=== PATIENT | female | born 1980 | race Caucasian/White ===

== ENCOUNTER 2018-03-19 14:17 | Emergency (ER) | payer MEDICAID ==
[~2018-03-19] VITALS: Ht 175.3 cm; Wt 65.9 kg
[2018-03-19] MEDS ORDERED: ALBU6.7H IH (14:30)
[2018-03-19] MEDS ORDERED: TRAM50TA4 PO (14:30)
[2018-03-19] MEDS ORDERED: FLUT16H NASAL (14:30)
[2018-03-19] MEDS ORDERED: GABA300S PO (14:30)
[2018-03-19 15:51] VITALS: BP 120/76
== END 2018-03-19 15:53 | disposition left against medical advice (07) ==
LOC: EMS 14:18
DX: N93.8 Other specified abnormal uterine and vaginal bleeding (principal); I10 Essential (primary) hypertension; Z79.899 Other long term (current) drug therapy; Z98.890 Other specified postprocedural states
CPT/HCPCS: 99283

== ENCOUNTER 2019-03-27 03:07 | Emergency (ER) | payer MEDICAID, OTHER ==
[~2019-03-27] VITALS: Ht 177.8 cm; Wt 70.5 kg
[~2019-03-27 03:07] MED LIST: ALBU6.7H9 IH; FLUT16H NASAL; GABA300S PO; TRAM50TA4 PO
[2019-03-27] MEDS ORDERED: CefTRIAXone SODIUM 1 GM/VIAL IM ONE (03:30)
[2019-03-27] MEDS ORDERED: FLUCONAZOLE 150 MG TABLET PO ONE (03:30)
[2019-03-27] MEDS ORDERED: MetroNIDAZOLE 500 MG TABLET PO ONE (03:30)
[2019-03-27] MEDS ORDERED: AZITHROMYCIN 250 MG TABLET PO ONE (03:30)
[2019-03-27] MEDS ORDERED: LIDOCAINE/PF 1% 2 ML VIAL IM ONE (03:45)
[2019-03-27 04:01] LABS: APPEARANCE,URINE CLEAR (CLEAR); BILIRUBIN,URINE NEGATIVE (NEGATIVE); GLUCOSE, URINE (UA) NEGATIVE (NEGATIVE); KETONES,URINE NEGATIVE (NEGATIVE); LEUKOCYTE ESTERASE ,URINE TRACE (NEGATIVE); NITRATE,URINE NEGATIVE (NEGATIVE); OCCULT BLOOD,URINE NEGATIVE (NEGATIVE); PH,URINE 5.5 (5.0-8.0); PROTEIN,URINE NEGATIVE (NEGATIVE); UROBILINOGEN,URINE 0.2 mg/dL (<=1.0)
[2019-03-27 04:08] LABS: BACTERIA,URINE Few /HPF (None Seen); RBC,URINE 0-2 /HPF (0-2); WBC,URINE 0-2 /HPF (0-5)
[2019-03-27 04:09] LABS: SQUAMOUS EPITHELIAL CELL,UR Few /LPF (None Seen)
[2019-03-27 04:27] VITALS: BP 141/78
== END 2019-03-27 04:31 | disposition home or self-care (01) ==
LOC: EMS 03:07
DX: R30.0 Dysuria (principal); N89.8 Other specified noninflammatory disorders of vagina; I10 Essential (primary) hypertension; F12.90 Cannabis use, unspecified, uncomplicated; F11.90 Opioid use, unspecified, uncomplicated; F17.210 Nicotine dependence, cigarettes, uncomplicated; Z88.0 Allergy status to penicillin; Z88.8 Allergy status to other drugs, medicaments and biological substances; Z79.899 Other long term (current) drug therapy
CPT/HCPCS: 81001; 96372; 99284; 99406; J0696; J3490

== ENCOUNTER 2019-10-04 15:53 | Inpatient (IN) | payer OTHER ==
[~2019-10-04] VITALS: Ht 170.2 cm; Wt 72.0 kg
[2019-10-04] MEDS ORDERED: ACET-66 PO (15:59)
[2019-10-04] MEDS ORDERED: [UNRECOGNIZED DRUG - OTHER] PO (15:59)
[2019-10-04] MEDS ORDERED: SODIUM CHLORIDE 0.9% 2,050 ML IV ONE (16:30)
[2019-10-04] MEDS ORDERED: ACETAMINOPHEN 500 MG TABLET PO ONE (16:45)
[2019-10-04 17:06] LABS: BASOPHILS % (AUTO) 0.2 % (0.0-2.0); EOSINOPHILS % (AUTO) 0 % (1.0-6.0); HEMATOCRIT 32.7 % (36-46); HEMOGLOBIN 9.5 g/dL (12.0-16.0); LYMPHOCYTES % (AUTO) 7.3 % (22.0-44.0); MEAN CORPUSCULAR HEMOGLOBIN 17.6 pg (26.0-34.0); MEAN CORPUSCULAR HGB CONC 28.9 G/dL (31.0-37.0); MEAN CORPUSCULAR VOLUME 61 fL (80-100); MONOCYTES # (AUTO) 1.8 K/uL (0.1-1.0); MONOCYTES % (AUTO) 12.8 % (2.0-9.0); NEUTROPHILS # (AUTO) 11.3 K/uL (1.8-7.7); NEUTROPHILS % (AUTO) 79.7 % (40.0-70.0); PLATELET COUNT (AUTO) 243 K/uL (150-450); RED BLOOD CELL COUNT(AUTO) 5.38 MIL/uL (4.00-5.20); RED CELL DISTRIBUTION WIDTH 19.9 % (11.5-14.5)
[2019-10-04 17:20] LABS: INR 1.1 (0.9-1.1)
[2019-10-04 17:21] LABS: LACTIC ACID 1.3 mmol/L (0.4-2.0)
[2019-10-04 17:25] LABS: CALCIUM, TOTAL 8.5 mg/dL (8.8-10.5); CREATININE 1.25 mg/dL (0.60-1.30); POTASSIUM 3.2 mmol/L (3.5-5.1)
[2019-10-04 17:33] LABS: INFLUENZA TYPE A NEGATIVE FOR TYPE A (NEGATIVE); INFLUENZA TYPE B NEGATIVE FOR TYPE B (NEGATIVE)
[2019-10-04 17:36] LABS: PLATELET MORPHOLOGY COMMENT GIANT PLTS PRESENT
[2019-10-04 17:51] LABS: ALBUMIN 3.2 g/dL (3.4-5.0); BILIRUBIN,TOTAL 0.4 mg/dL (0.1-1.0)
[2019-10-04 17:59] LABS: C-REACTIVE PROTEIN QUANT 15.56 mg/dL (0.00-0.30)
[2019-10-04] MEDS ORDERED: POTASSIUM CHLORIDE 20 MEQ ER TABLET PO ONE (18:15)
[2019-10-04] MEDS ORDERED: LEVOFLOXACIN 750 MG/D5% WATER 150 ML IV ONE (19:30)
[2019-10-04] MEDS ORDERED: POTASSIUM CHL 10 MEQ/WATER 50 ML IV PRN (21:45)
[2019-10-04] MEDS ORDERED: MAGNESIUM SULFATE 4 GM/WATER 100 ML IV PRN (21:45)
[2019-10-04] MEDS ORDERED: ONDANSETRON HCL 4 MG/2 ML VIAL IVP PRN (21:45)
[2019-10-04] MEDS ORDERED: ZOLPIDEM TARTRATE 5 MG TABLET PO PRN (21:45)
[2019-10-04] MEDS ORDERED: POTASSIUM CHLORIDE 20 MEQ ER TABLET PO PRN (21:45)
[2019-10-04] MEDS ORDERED: MAGNESIUM SULFATE 2 GM/WATER 50 ML IV PRN (21:45)
[2019-10-04] MEDS ORDERED: MAGNESIUM OXIDE 400 MG TABLET PO PRN (21:45)
[2019-10-04] MEDS ORDERED: SODIUM CHLORIDE 0.9% 1,000 ML IV ONE (21:45)
[2019-10-04] MEDS ORDERED: ALBUMIN HUMAN 25%-25GM/100ML 100 ML IV PRN (21:45)
[2019-10-04] MEDS ORDERED: 0.9% SODIUM CHLORIDE 10 ML SYRINGE IVP PRN (21:45)
[2019-10-04] MEDS: HEPARIN SODIUM,PORCINE 5,000 UNITS/ML VIAL SQ SCH (23:32)
[2019-10-04 23:46] LABS: APPEARANCE,URINE CLOUDY (CLEAR); BILIRUBIN,URINE NEGATIVE (NEGATIVE); GLUCOSE, URINE (UA) NEGATIVE (NEGATIVE); KETONES,URINE NEGATIVE (NEGATIVE); LEUKOCYTE ESTERASE ,URINE LARGE (NEGATIVE); NITRATE,URINE POSITIVE (NEGATIVE); OCCULT BLOOD,URINE SMALL (NEGATIVE); PROTEIN,URINE POS 1+ (NEGATIVE)
[2019-10-04 23:52] LABS: BACTERIA,URINE Moderate /HPF (None Seen); SQUAMOUS EPITHELIAL CELL,UR Rare /LPF (None Seen); WBC,URINE >100 /HPF (0-5)
[2019-10-05 06:19] LABS: BASOPHILS % (AUTO) 0.2 % (0.0-2.0); EOSINOPHILS % (AUTO) 0 % (1.0-6.0); HEMATOCRIT 27.1 % (36-46); HEMOGLOBIN 7.9 g/dL (12.0-16.0); MEAN CORPUSCULAR HEMOGLOBIN 17.6 pg (26.0-34.0); MEAN CORPUSCULAR VOLUME 61 fL (80-100); MONOCYTES # (AUTO) 1.6 K/uL (0.1-1.0); MONOCYTES % (AUTO) 12.5 % (2.0-9.0); NEUTROPHILS % (AUTO) 79.3 % (40.0-70.0); PLATELET COUNT (AUTO) 200 K/uL (150-450); RED BLOOD CELL COUNT(AUTO) 4.48 MIL/uL (4.00-5.20); RED CELL DISTRIBUTION WIDTH 19.1 % (11.5-14.5)
[2019-10-05 06:41] LABS: ALBUMIN 2.5 g/dL (3.4-5.0); ANION GAP 7 mmol/L (8-16); CALCIUM, TOTAL 7.7 mg/dL (8.8-10.5); CARBON DIOXIDE 27 mmol/L (22-29); CHLORIDE 100 mmol/L (98-107); CREATININE 0.78 mg/dL (0.60-1.30); GLOMERULAR FILTR. RATE CALC > 60 mL/min (>60); GLUCOSE,RANDOM 103 mg/dL (70-110); POTASSIUM 3.8 mmol/L (3.5-5.1); SODIUM SERUM 134 mmol/L (136-145); UREA NITROGEN, BLOOD 10 mg/dL (7-18)
[2019-10-05 07:25] LABS: PLATELET MORPHOLOGY COMMENT LARGE PLTS PRESENT
[2019-10-05] MEDS: PANTOPRAZOLE SODIUM 40 MG DR TABLET PO SCH (08:37)
[2019-10-05] MEDS: HEPARIN SODIUM,PORCINE 5,000 UNITS/ML VIAL SQ SCH ×2 (08:38→15:47)
[2019-10-05] MEDS: SODIUM CHLORIDE 0.9% 1,000 ML IV SCH ×3 (11:15→15:00)
[2019-10-05] MEDS ORDERED: GABA-531 PO (11:25)
[2019-10-05] MEDS: CefTRIAXone 1 GM/DEXTROSE 50 ML IV SCH ×2 (12:00→12:49)
[2019-10-05] MEDS: MetroNIDAZOLE 500 MG/NACL 100 ML IV SCH ×2 (13:17→20:27)
[2019-10-05] MEDS: ACETAMINOPHEN 325 MG TABLET PO PRN (13:53)
[2019-10-05 14:44] VITALS: BP 120/60
[2019-10-05] MEDS ORDERED: SODIUM CHLORIDE 0.9% 250 ML IV ONE (15:13)
[2019-10-05 17:07] VITALS: BP 120/60
[2019-10-05] MEDS ORDERED: INFLUENZA VIRUS VACCINE QVS 2019-20 (3YR+)/PF 60 MCG/0.5 ML SYRINGE IM ONE (19:15)
[2019-10-05 19:54] VITALS: BP 113/66
[2019-10-05 20:17] LABS: LACTATE DEHYDROGENASE 391 U/L (81-234)
[2019-10-06 00:27] VITALS: BP 112/55
[2019-10-06] MEDS: HEPARIN SODIUM,PORCINE 5,000 UNITS/ML VIAL SQ SCH ×2 (00:52→08:00)
[2019-10-06] MEDS: ACETAMINOPHEN 325 MG TABLET PO PRN (00:53)
[2019-10-06] MEDS: MetroNIDAZOLE 500 MG/NACL 100 ML IV SCH (05:41)
[2019-10-06 05:42] VITALS: BP 98/61
[2019-10-06 07:27] LABS: BASOPHILS % (AUTO) 0.2 % (0.0-2.0); EOSINOPHILS % (AUTO) 0.2 % (1.0-6.0); HEMATOCRIT 26.3 % (36-46); HEMOGLOBIN 7.8 g/dL (12.0-16.0); LYMPHOCYTES # (AUTO) 1.3 K/uL (1.0-4.8); LYMPHOCYTES % (AUTO) 17.2 % (22.0-44.0); MEAN CORPUSCULAR HEMOGLOBIN 17.9 pg (26.0-34.0); MEAN CORPUSCULAR HGB CONC 29.6 G/dL (31.0-37.0); MEAN CORPUSCULAR VOLUME 61 fL (80-100); MONOCYTES # (AUTO) 1.1 K/uL (0.1-1.0); MONOCYTES % (AUTO) 14.3 % (2.0-9.0); NEUTROPHILS # (AUTO) 5.1 K/uL (1.8-7.7); NEUTROPHILS % (AUTO) 68.1 % (40.0-70.0); PLATELET COUNT (AUTO) 192 K/uL (150-450); RED BLOOD CELL COUNT(AUTO) 4.35 MIL/uL (4.00-5.20); RED CELL DISTRIBUTION WIDTH 19.1 % (11.5-14.5)
[2019-10-06 08:10] LABS: IRON, SERUM 7 mcg/dL (50-175); TOTAL IRON BINDING CAPACITY 338 mcg/dL (250-450)
[2019-10-06 08:23] LABS: ALANINE AMINOTRANSFERASE 15 U/L (12-78); ALBUMIN 2.4 g/dL (3.4-5.0); ALKALINE PHOSPHATASE 56 U/L (46-116); ANION GAP 10 mmol/L (8-16); ASPARTATE AMINOTRANSFERASE 12 U/L (15-37); BILIRUBIN,TOTAL 0.2 mg/dL (0.1-1.0); CALCIUM, TOTAL 7.8 mg/dL (8.8-10.5); CARBON DIOXIDE 25 mmol/L (22-29); CHLORIDE 101 mmol/L (98-107); FERRITIN 62 ng/mL (8-252); GLOMERULAR FILTR. RATE CALC > 60 mL/min (>60); GLUCOSE,RANDOM 84 mg/dL (70-110); POTASSIUM 3.6 mmol/L (3.5-5.1); SODIUM SERUM 136 mmol/L (136-145); TOTAL PROTEIN, SERUM 6.3 g/dL (6.4-8.2); UREA NITROGEN, BLOOD 11 mg/dL (7-18)
[2019-10-06 08:29] VITALS: BP 102/62
[2019-10-06] MEDS: PANTOPRAZOLE SODIUM 40 MG DR TABLET PO SCH (08:53)
[2019-10-06] MEDS: SODIUM CHLORIDE 0.9% 1,000 ML IV SCH (09:05)
[2019-10-06] MEDS ORDERED: TraMADol HCL 50 MG TABLET PO PRN (10:30)
== END 2019-10-06 10:45 | disposition left against medical advice (07) | DRG 720 ==
LOC: EMS 15:55 → 5N 10-05 12:42
PROVIDERS: ADMIT Internal Medicine; ATTEND Internal Medicine
DX: A41.9 Sepsis, unspecified organism (principal); U07.1 COVID-19; R65.21 Severe sepsis with septic shock; K81.0 Acute cholecystitis; N10 Acute pyelonephritis; F12.90 Cannabis use, unspecified, uncomplicated; F11.90 Opioid use, unspecified, uncomplicated; D50.9 Iron deficiency anemia, unspecified; Z53.29 Procedure and treatment not carried out because of patient's decision for other reasons; Z88.0 Allergy status to penicillin; F17.210 Nicotine dependence, cigarettes, uncomplicated; I10 Essential (primary) hypertension; Z59.0 Homelessness; J12.89 Other viral pneumonia
CPT/HCPCS: 71250; 76700; 82728; 83540; 83550; 83605; 83615; 83735; 84145; 84466; 85651; 86140; 87040; 87086; 87635; 87804; 93005; J0696; J1644; J1956; J3475; J3480; J3490; J7030; J7050

== ENCOUNTER 2020-01-01 08:15 | Emergency (ER) | payer OTHER ==
[~2020-01-01] VITALS: Ht 175.3 cm; Wt 72.7 kg
[~2020-01-01 08:15] MED LIST changes: +ACET-66 PO; +GABA-1181 PO; -GABA300S PO; +[UNRECOGNIZED DRUG - OTHER] PO
[2020-01-01] MEDS ORDERED: SODIUM CHLORIDE 0.9% 2,200 ML IV ONE (08:34)
[2020-01-01] MEDS ORDERED: ACETAMINOPHEN 500 MG TABLET PO ONE (08:45)
[2020-01-01] MEDS ORDERED: 0.9% SODIUM CHLORIDE 10 ML SYRINGE IVP PRN (08:45)
[2020-01-01 09:17] LABS: BASOPHILS % (AUTO) 0.7 % (0.0-2.0); EOSINOPHILS % (AUTO) 0.3 % (1.0-6.0); HEMATOCRIT 30.5 % (36-46); HEMOGLOBIN 9.2 g/dL (12.0-16.0); LYMPHOCYTES # (AUTO) 1.1 K/uL (1.0-4.8); LYMPHOCYTES % (AUTO) 12.7 % (22.0-44.0); MEAN CORPUSCULAR HEMOGLOBIN 18.4 pg (26.0-34.0); MEAN CORPUSCULAR HGB CONC 30.1 G/dL (31.0-37.0); MEAN CORPUSCULAR VOLUME 61 fL (80-100); MONOCYTES % (AUTO) 12.2 % (2.0-9.0); NEUTROPHILS # (AUTO) 6.2 K/uL (1.8-7.7); NEUTROPHILS % (AUTO) 74.1 % (40.0-70.0); PLATELET COUNT (AUTO) 341 K/uL (150-450); RED BLOOD CELL COUNT(AUTO) 4.99 MIL/uL (4.00-5.20); RED CELL DISTRIBUTION WIDTH 18.9 % (11.5-14.5)
[2020-01-01 09:29] LABS: ANION GAP 4 mmol/L (8-16); CALCIUM, TOTAL 8.3 mg/dL (8.8-10.5); CARBON DIOXIDE 30 mmol/L (22-29); CHLORIDE 101 mmol/L (98-107); CREATININE 0.78 mg/dL (0.60-1.30); GLOMERULAR FILTR. RATE CALC > 60 mL/min (>60); GLUCOSE,RANDOM 109 mg/dL (70-110); POTASSIUM 3.8 mmol/L (3.5-5.1); SODIUM SERUM 135 mmol/L (136-145); UREA NITROGEN, BLOOD 10 mg/dL (7-18)
[2020-01-01 09:33] LABS: PROTHROMBIN TIME 10.5 SEC (9.4-11.6)
[2020-01-01 09:37] LABS: LACTIC ACID 1.1 mmol/L (0.4-2.0); PLATELET MORPHOLOGY COMMENT GIANT PLTS PRESENT
[2020-01-01 09:43] LABS: ALANINE AMINOTRANSFERASE 19 U/L (12-78); ALBUMIN 3.3 g/dL (3.4-5.0); ALKALINE PHOSPHATASE 74 U/L (46-116); ASPARTATE AMINOTRANSFERASE 13 U/L (15-37); BILIRUBIN,TOTAL 0.4 mg/dL (0.1-1.0); CREATINE KINASE, TOTAL ONLY 72 U/L (26-192); HCG,QUANTITATIVE < 1 mIU/mL (0-6); TOTAL PROTEIN, SERUM 8.3 g/dL (6.4-8.2)
[2020-01-01 10:07] LABS: INFLUENZA TYPE A NEGATIVE FOR TYPE A (NEGATIVE); INFLUENZA TYPE B NEGATIVE FOR TYPE B (NEGATIVE)
[2020-01-01 10:10] LABS: B-TYPE NATRIURETIC PEPTIDE 9 pg/mL (0-100)
[2020-01-01 12:23] VITALS: BP 120/72
== END 2020-01-01 12:25 | disposition home or self-care (01) ==
LOC: EMS 08:20
DX: B34.9 Viral infection, unspecified (principal); R50.9 Fever, unspecified; M79.10 Myalgia, unspecified site; F17.210 Nicotine dependence, cigarettes, uncomplicated; I10 Essential (primary) hypertension; F12.90 Cannabis use, unspecified, uncomplicated; F11.90 Opioid use, unspecified, uncomplicated; Z20.828 Contact with and (suspected) exposure to other viral communicable diseases; Z88.6 Allergy status to analgesic agent; Z88.0 Allergy status to penicillin
CPT/HCPCS: 36415; 71045; 80053; 82550; 83605; 83880; 84145; 84484; 84702; 85025; 85610; 87040; 87804; 93005; 99285; 99406; J7030; U0003

== ENCOUNTER 2020-09-23 04:40 | Emergency (ER) | payer OTHER ==
[~2020-09-23] VITALS: Ht 177.8 cm; Wt 77.7 kg
[~2020-09-23 04:40] MED LIST changes: +ACET-3385 PO; -ACET-66 PO
[2020-09-23] MEDS ORDERED: MetroNIDAZOLE 250 MG TABLET PO ONE (05:15)
[2020-09-23] MEDS ORDERED: DOXYCYCLINE HYCLATE 100 MG TABLET PO ONE (05:15)
[2020-09-23] MEDS ORDERED: ACETAMINOPHEN 500 MG TABLET PO ONE (05:15)
[2020-09-23 05:29] VITALS: BP 139/78
== END 2020-09-23 05:59 | disposition home or self-care (01) ==
LOC: EMS 04:41
DX: N89.8 Other specified noninflammatory disorders of vagina (principal); I10 Essential (primary) hypertension; F17.210 Nicotine dependence, cigarettes, uncomplicated; F12.90 Cannabis use, unspecified, uncomplicated; F11.90 Opioid use, unspecified, uncomplicated; Z88.6 Allergy status to analgesic agent; Z88.0 Allergy status to penicillin
CPT/HCPCS: 99284; Z7502; Z7610

== ENCOUNTER 2021-02-05 22:01 | Emergency (ER) | payer OTHER ==
[~2021-02-05] VITALS: Ht 175.3 cm; Wt 77.7 kg
[2021-02-05 23:30] LABS: BASOPHILS % (AUTO) 0.4 % (0.0-2.0); EOSINOPHILS % (AUTO) 15.1 % (1.0-6.0); HEMATOCRIT 25.2 % (36-46); HEMOGLOBIN 7.2 g/dL (12.0-16.0); LYMPHOCYTES # (AUTO) 2.5 K/uL (1.0-4.8); LYMPHOCYTES % (AUTO) 38.7 % (22.0-44.0); MEAN CORPUSCULAR HEMOGLOBIN 16.4 pg (26.0-34.0); MEAN CORPUSCULAR HGB CONC 28.6 G/dL (31.0-37.0); MEAN CORPUSCULAR VOLUME 57 fL (80-100); MONOCYTES # (AUTO) 0.9 K/uL (0.1-1.0); MONOCYTES % (AUTO) 13.2 % (2.0-9.0); NEUTROPHILS # (AUTO) 2.1 K/uL (1.8-7.7); NEUTROPHILS % (AUTO) 32.6 % (40.0-70.0); PLATELET COUNT (AUTO) 367 K/uL (150-450); RED BLOOD CELL COUNT(AUTO) 4.39 MIL/uL (4.00-5.20)
[2021-02-05 23:43] LABS: PROTHROMBIN TIME 10.6 SEC (9.4-11.6)
[2021-02-05 23:49] LABS: ANION GAP 8 mmol/L (8-16); CALCIUM, TOTAL 8.1 mg/dL (8.8-10.5); CARBON DIOXIDE 27 mmol/L (22-29); CHLORIDE 104 mmol/L (98-107); CREATININE 0.78 mg/dL (0.60-1.30); GLOMERULAR FILTR. RATE CALC > 60 mL/min (>60); GLUCOSE,RANDOM 95 mg/dL (70-110); POTASSIUM 3.5 mmol/L (3.5-5.1); SODIUM SERUM 139 mmol/L (136-145); UREA NITROGEN, BLOOD 15 mg/dL (7-18)
[2021-02-05 23:54] LABS: ALANINE AMINOTRANSFERASE 19 U/L (12-78); ALBUMIN 3.4 g/dL (3.4-5.0); ALKALINE PHOSPHATASE 71 U/L (46-116); ASPARTATE AMINOTRANSFERASE 10 U/L (15-37); BILIRUBIN,TOTAL 0.2 mg/dL (0.1-1.0); HCG,QUANTITATIVE < 1 mIU/mL (0-6); TOTAL PROTEIN, SERUM 7.6 g/dL (6.4-8.2)
[2021-02-06 00:17] VITALS: BP 124/82
[2021-02-06 02:01] LABS: PLATELET MORPHOLOGY COMMENT GIANT PLTS PRESENT
== END 2021-02-06 01:10 | disposition home or self-care (01) ==
LOC: EMS 22:04
DX: N93.8 Other specified abnormal uterine and vaginal bleeding (principal); D64.9 Anemia, unspecified; Z88.6 Allergy status to analgesic agent; F17.210 Nicotine dependence, cigarettes, uncomplicated; I10 Essential (primary) hypertension; Z98.890 Other specified postprocedural states; Z88.0 Allergy status to penicillin; Z97.5 Presence of (intrauterine) contraceptive device
CPT/HCPCS: 80053; 84702; 85025; 85610; 85730; 99283

== ENCOUNTER 2021-07-18 21:20 | Emergency (ER) | payer OTHER ==
[~2021-07-18] VITALS: Ht 175.3 cm; Wt 90.9 kg
[2021-07-19] MEDS ORDERED: CLIN300C3 PO (01:10)
[2021-07-19 01:16] VITALS: BP 132/75
== END 2021-07-19 01:18 | disposition home or self-care (01) ==
LOC: EMS 21:23
DX: K04.7 Periapical abscess without sinus (principal); I10 Essential (primary) hypertension; F17.210 Nicotine dependence, cigarettes, uncomplicated; F12.90 Cannabis use, unspecified, uncomplicated; F11.90 Opioid use, unspecified, uncomplicated; Z88.6 Allergy status to analgesic agent; Z88.0 Allergy status to penicillin
CPT/HCPCS: 99281; 99283

== ENCOUNTER 2021-08-25 16:26 | Emergency (ER) | payer OTHER ==
[~2021-08-25] VITALS: Ht 175.3 cm; Wt 90.0 kg
[~2021-08-25 16:26] MED LIST changes: +CLIN300C3 PO
[2021-08-25] MEDS ORDERED: IBUP-1554 PO (17:31)
[2021-08-25] MEDS ORDERED: CLIN300C3 PO (17:31)
[2021-08-25 17:53] VITALS: BP 132/86
== END 2021-08-25 18:01 | disposition home or self-care (01) ==
LOC: EMS 16:37
DX: K04.7 Periapical abscess without sinus (principal); I10 Essential (primary) hypertension; F12.90 Cannabis use, unspecified, uncomplicated; F11.90 Opioid use, unspecified, uncomplicated; F17.210 Nicotine dependence, cigarettes, uncomplicated; Z88.0 Allergy status to penicillin; Z88.8 Allergy status to other drugs, medicaments and biological substances
CPT/HCPCS: 99283; Z7502

== ENCOUNTER 2021-09-06 01:46 | Emergency (ER) | payer OTHER ==
[~2021-09-06] VITALS: Ht 175.3 cm; Wt 82.3 kg
[~2021-09-06 01:46] MED LIST changes: -ACET-3385 PO; -ALBU6.7H9 IH; -FLUT16H NASAL; -GABA-1181 PO; +IBUP-1554 PO; -TRAM50TA4 PO; -[UNRECOGNIZED DRUG - OTHER] PO
[2021-09-06 01:49] VITALS: BP 138/80
[2021-09-06] MEDS ORDERED: CLIN-142 PO (03:52)
[2021-09-06] MEDS ORDERED: KETOROLAC TROMETHAMINE 30 MG/ML VIAL IM ONE (04:00)
== END 2021-09-06 04:09 | disposition home or self-care (01) ==
LOC: EMS 01:47
DX: K08.89 Other specified disorders of teeth and supporting structures (principal); K02.9 Dental caries, unspecified; I10 Essential (primary) hypertension; F17.210 Nicotine dependence, cigarettes, uncomplicated; F15.90 Other stimulant use, unspecified, uncomplicated; F14.90 Cocaine use, unspecified, uncomplicated; F12.90 Cannabis use, unspecified, uncomplicated; F11.90 Opioid use, unspecified, uncomplicated; Z88.0 Allergy status to penicillin; Z88.8 Allergy status to other drugs, medicaments and biological substances; Z98.890 Other specified postprocedural states
CPT/HCPCS: 96372; 99283; J1885

== ENCOUNTER 2022-10-16 08:59 | Emergency (ER) | payer OTHER ==
[~2022-10-16] VITALS: Ht 175.3 cm; Wt 77.7 kg
[~2022-10-16 08:59] MED LIST changes: +CLIN-142 PO; -CLIN300C3 PO; +CLIN300C58 PO
[2022-10-16] MEDS ORDERED: ACET-2247 PO (09:02)
[2022-10-16 09:04] VITALS: BP 140/84
[2022-10-16 10:25] LABS: APPEARANCE,URINE HAZY (CLEAR); BILIRUBIN,URINE NEGATIVE (NEGATIVE); GLUCOSE, URINE (UA) NEGATIVE (NEGATIVE); KETONES,URINE NEGATIVE (NEGATIVE); LEUKOCYTE ESTERASE ,URINE MODERATE (NEGATIVE); NITRATE,URINE NEGATIVE (NEGATIVE); OCCULT BLOOD,URINE NEGATIVE (NEGATIVE); PROTEIN,URINE TRACE mg/dL (NEGATIVE); SPECIFIC GRAVITIY, URINE 1.026 (1.003-1.030); UROBILINOGEN,URINE <=1.0 mg/dL (<=1.0)
[2022-10-16 10:39] LABS: BACTERIA,URINE Many /HPF (None Seen); RBC,URINE 0-2 /HPF (0-2); SQUAMOUS EPITHELIAL CELL,UR Many /LPF (None Seen)
== END 2022-10-16 12:23 | disposition left against medical advice (07) ==
LOC: EMS 09:00
DX: N39.0 Urinary tract infection, site not specified (principal); Z53.21 Procedure and treatment not carried out due to patient leaving prior to being seen by health care provider
CPT/HCPCS: 81001; 84703; 87086; 87186; 99281; Z7502

== ENCOUNTER 2023-07-03 09:49 | Emergency (ER) | payer OTHER ==
[~2023-07-03] VITALS: Ht 172.7 cm; Wt 68.2 kg
[~2023-07-03 09:49] MED LIST changes: +ACET-2247 PO; -CLIN-142 PO; -CLIN300C58 PO; -IBUP-1554 PO
[2023-07-03 09:57] VITALS: TEMP 97.9
[2023-07-03] MEDS ORDERED: HYDROCODONE/ACETAMINOPHEN 5-325 MG TABLET PO ONE (13:15)
[2023-07-03] MEDS ORDERED: CLIN300C58 PO (13:29)
[2023-07-03] MEDS ORDERED: HYDR-4723 PO (13:29)
[2023-07-03 13:42] VITALS: BP 144/77; PULSE 80; RESP 18
== END 2023-07-03 13:55 | disposition home or self-care (01) ==
LOC: EMS 09:49
DX: K04.7 Periapical abscess without sinus (principal); E11.9 Type 2 diabetes mellitus without complications; I10 Essential (primary) hypertension; F17.210 Nicotine dependence, cigarettes, uncomplicated; F14.90 Cocaine use, unspecified, uncomplicated; F12.90 Cannabis use, unspecified, uncomplicated; F15.90 Other stimulant use, unspecified, uncomplicated; Z98.890 Other specified postprocedural states; Z88.0 Allergy status to penicillin
CPT/HCPCS: 82962; 99283